=== PATIENT | male | born 1960 | race Caucasian/White ===

== ENCOUNTER 2017-10-19 15:50 | Inpatient (IN) | payer OTHER ==
[2017-10-19 16:14] LABS: ADD MAN DIFF? NO
[2017-10-19 16:18] LABS: BASO # 0.1 x10^3/uL (0.0-0.2); BASO % 1 % (0-3); EOS # 0.1 x10^3/uL (0.0-0.7); EOS % 1 % (0-3); HEMATOCRIT 35.9 % (39.0-53.0); LYMPH # 1.7 x10^3/uL (1.0-4.8); LYMPH % 16 % (24-48); MEAN CORPUSCULAR HEMOGLOBIN 30 pg (25-35); MEAN CORPUSCULAR HGB CONC 33 g/dL (31-37); MEAN CORPUSCULAR VOLUME 89 fL (79-100); MONO # 1.5 x10^3/uL (0.0-1.1); MONO % 15 % (0-9); NEUT % 68 % (31-73); PLATELET COUNT 404 x10^3/uL (140-400); RED BLOOD COUNT 4.04 x10^6/uL (4.30-5.70); RED CELL DISTRIBUTION WIDTH 15.1 % (11.5-14.5); WHITE BLOOD COUNT 10.3 x10^3/uL (4.0-11.0)
[2017-10-19 16:28] LABS: INR 1.1 (0.8-1.1); PARTIAL THROMBOPLASTIN TIME 33 SEC (24-38); PROTHROMBIN TIME PATIENT 13.7 SEC (11.7-14.0)
[2017-10-19] MEDS: methylPREDNISolone SOD SUCC PF 125 MG/2 ML VIAL. IV (16:30)
[2017-10-19 16:33] LABS: ANION GAP 10 (6-14); BLOOD UREA NITROGEN 13 mg/dL (8-26); BUN/CREATININE RATIO 11 (6-20); CALCIUM 9.3 mg/dL (8.5-10.1); CARBON DIOXIDE 33 mmol/L (21-32); CHLORIDE 97 mmol/L (98-107); CREATININE 1.2 mg/dL (0.7-1.3); GFR 62.6; GLUCOSE 140 mg/dL (70-99); SODIUM 140 mmol/L (136-145)
[2017-10-19 16:40] LABS: LACTIC ACID 1.4 mmol/L (0.4-2.0)
[2017-10-19 16:43] LABS: NT-PRO BNP 478 pg/mL (0-124); TROPONINI < 0.017 ng/mL (0.000-0.055)
[2017-10-19 16:47] LABS: ALK PHOS 63 U/L (46-116); ALT (SGPT) 40 U/L (16-63); AST (SGOT) 55 U/L (15-37); MAGNESIUM 2.1 mg/dL (1.8-2.4); TOTAL BILIRUBIN 0.3 mg/dL (0.2-1.0); TOTAL PROTEIN 7.9 g/dL (6.4-8.2)
[2017-10-19] MEDS: IPRATRPIUM/ALBUTEROL 0.5/2.5MG 3 ML NEBU. NEB (17:00)
[2017-10-19] MEDS: ALBUTEROL SULFATE 2.5 MG/3 ML NEBU. NEB ×2 (17:00→18:39)
[2017-10-19] MEDS: POTASSIUM CHLORIDE 20 MEQ TABLET.ER. PO (17:43)
[2017-10-19] MEDS ORDERED: ONDANSETRON PF 4 MG/2 ML VIAL. IV (17:45)
[2017-10-19 17:55] LABS: INFLUENZA A PATIENT NEGATIVE (NEGATIVE); INFLUENZA B PATIENT NEGATIVE (NEGATIVE); OBC FLU VALID
[2017-10-19 20:37] LABS: POC GLUCOSE 266 mg/dL (70-99)
[2017-10-19] MEDS ORDERED: DEXTROSE 50% 25 GM / 50ML DISP.SYRIN. IV (21:00)
[2017-10-19] MEDS: QUEtiapine 100 MG TABLET. PO (21:30)
[2017-10-19] MEDS ORDERED: QUEtiapine 300 MG TAB.ER.24H. PO (21:30)
[2017-10-19] MEDS ORDERED: clonazePAM 0.5 MG TABLET PO ×2 (21:30)
[2017-10-19] MEDS: ATORVASTATIN CALCIUM 10 MG TABLET. PO (21:30)
[2017-10-19] MEDS: guaiFENesin DM 600/30MG 1 TAB TAB.ER.12H PO (21:42)
[2017-10-19] MEDS: ACETAMINOPHEN 500 MG TABLET PO (21:42)
[2017-10-20 05:22] LABS: ADD MAN DIFF? NO
[2017-10-20 05:24] LABS: BASO % 0 % (0-3); EOS % 0 % (0-3); HEMATOCRIT 30.8 % (39.0-53.0); HEMOGLOBIN 10.3 g/dL (13.0-17.5); LYMPH # 0.7 x10^3/uL (1.0-4.8); LYMPH % 14 % (24-48); MEAN CORPUSCULAR HEMOGLOBIN 30 pg (25-35); MEAN CORPUSCULAR HGB CONC 34 g/dL (31-37); MEAN CORPUSCULAR VOLUME 90 fL (79-100); MONO # 0.4 x10^3/uL (0.0-1.1); MONO % 8 % (0-9); NEUT # 3.8 x10^3uL (1.8-7.7); NEUT % 78 % (31-73); PLATELET COUNT 326 x10^3/uL (140-400); RED BLOOD COUNT 3.41 x10^6/uL (4.30-5.70); RED CELL DISTRIBUTION WIDTH 15.6 % (11.5-14.5); WHITE BLOOD COUNT 4.9 x10^3/uL (4.0-11.0)
[2017-10-20 06:04] LABS: ANION GAP 9 (6-14); BLOOD UREA NITROGEN 17 mg/dL (8-26); CALCIUM 8.6 mg/dL (8.5-10.1); CARBON DIOXIDE 31 mmol/L (21-32); CHLORIDE 100 mmol/L (98-107); CREATININE 1.4 mg/dL (0.7-1.3); GFR 52.4; GLUCOSE 250 mg/dL (70-99); POTASSIUM 3.6 mmol/L (3.5-5.1); SODIUM 140 mmol/L (136-145)
[2017-10-20] MEDS: ALBUTEROL SULFATE 2.5 MG/3 ML NEBU. NEB ×2 (07:53→12:10)
[2017-10-20 08:17] LABS: POC GLUCOSE 188 mg/dL (70-99)
[2017-10-20] MEDS: FENOFIBRATE,MICRONIZED 134 MG CAPSULE PO (08:41)
[2017-10-20] MEDS: guaiFENesin DM 600/30MG 1 TAB TAB.ER.12H PO ×2 (08:41→21:01)
[2017-10-20] MEDS: amLODIPine BESYLATE 10 MG TABLET PO (08:42)
[2017-10-20] MEDS: LISINOPRIL 10 MG TABLET PO (08:42)
[2017-10-20] MEDS: QUEtiapine 100 MG TABLET. PO ×2 (08:43→21:00)
[2017-10-20] MEDS: INSULIN ASPART 300 UNITS/3 ML INSULN.PEN SQ ×3 (08:47→18:24)
[2017-10-20 12:13] LABS: POC GLUCOSE 122 mg/dL (70-99)
[2017-10-20] MEDS: BUDESONIDE 0.5 MG/2 ML NEBU. NEB ×2 (13:30→20:36)
[2017-10-20] MEDS: IPRATRPIUM/ALBUTEROL 0.5/2.5MG 3 ML NEBU. NEB ×2 (15:51→20:36)
[2017-10-20] MEDS: DOXYCYCLINE HYCLATE 100 MG TABLET PO ×2 (16:18→21:01)
[2017-10-20 16:54] LABS: POC GLUCOSE 184 mg/dL (70-99)
[2017-10-20 21:01] LABS: POC GLUCOSE 209 mg/dL (70-99)
[2017-10-20] MEDS: ATORVASTATIN CALCIUM 10 MG TABLET. PO (21:01)
[2017-10-21] MEDS: INSULIN ASPART 300 UNITS/3 ML INSULN.PEN SQ (08:00)
[2017-10-21 08:07] LABS: POC GLUCOSE 139 mg/dL (70-99)
[2017-10-21] MEDS: IPRATRPIUM/ALBUTEROL 0.5/2.5MG 3 ML NEBU. NEB ×2 (08:28→12:00)
[2017-10-21] MEDS: BUDESONIDE 0.5 MG/2 ML NEBU. NEB (08:29)
[2017-10-21] MEDS: amLODIPine BESYLATE 10 MG TABLET PO (08:44)
[2017-10-21] MEDS: QUEtiapine 100 MG TABLET. PO (08:45)
[2017-10-21] MEDS: LISINOPRIL 10 MG TABLET PO (08:45)
[2017-10-21] MEDS: predniSONE 20 MG TABLET PO (08:45)
[2017-10-21] MEDS: FENOFIBRATE,MICRONIZED 134 MG CAPSULE PO (08:46)
[2017-10-21] MEDS: DOXYCYCLINE HYCLATE 100 MG TABLET PO (08:46)
[2017-10-21] MEDS: guaiFENesin DM 600/30MG 1 TAB TAB.ER.12H PO (08:46)
[2017-10-21 11:56] LABS: POC GLUCOSE 210 mg/dL (70-99)
[2017-10-23] MEDS ORDERED: predniSONE 20 MG TABLET PO (09:00)
[2017-10-25] MEDS ORDERED: predniSONE 10 MG TABLET PO (09:00)
[2017-10-27] MEDS ORDERED: predniSONE 5 MG TABLET PO (09:00)
== END 2017-10-21 14:50 | disposition home health service (06) | DRG 189 ==
LOC: ER 15:50 → ED HOLD 17:02 → 2 SOUTH 20:00
PROVIDERS: Family Medicine
DX: J96.21 Acute and chronic respiratory failure with hypoxia (principal); N17.9 Acute kidney failure, unspecified; E11.22 Type 2 diabetes mellitus with diabetic chronic kidney disease; F20.0 Paranoid schizophrenia; J44.1 Chronic obstructive pulmonary disease with (acute) exacerbation; J44.0 Chronic obstructive pulmonary disease with (acute) lower respiratory infection; J20.9 Acute bronchitis, unspecified; N18.9 Chronic kidney disease, unspecified; I12.9 Hypertensive chronic kidney disease with stage 1 through stage 4 chronic kidney disease, or unspecified chronic kidney disease; E78.00 Pure hypercholesterolemia, unspecified; F17.210 Nicotine dependence, cigarettes, uncomplicated; D64.9 Anemia, unspecified; E78.5 Hyperlipidemia, unspecified; Z82.49 Family history of ischemic heart disease and other diseases of the circulatory system; Z83.3 Family history of diabetes mellitus; Z84.1 Family history of disorders of kidney and ureter; Z90.89 Acquired absence of other organs; Z79.899 Other long term (current) drug therapy; Z79.84 Long term (current) use of oral hypoglycemic drugs; Z71.6 Tobacco abuse counseling
CPT/HCPCS: 36415; 71045; 80048; 80053; 82962; 83605; 83735; 83880; 84484; 85025; 85610; 85730; 87040; 87804; 87804-59; 93005; 94640; 94760; 96374; 99285-25; J1815; J2930; J7512; J7613; J7620; J7626